=== PATIENT | female | born 1990 | race Caucasian/White ===

== ENCOUNTER 2016-06-07 11:41 | Emergency (ER) | payer BC ==
[~2016-06-07] VITALS: Ht 167.6 cm; Wt 93.0 kg
[~2016-06-07 11:41] MED LIST: BCPILLS PO; MELA1TAB3 PO
[2016-06-07 11:48] VITALS: TEMP 37.1; Ht 167.6 cm; Wt 93.0 kg
[2016-06-07] MEDS ORDERED: CETI10TA84 PO (12:24)
[2016-06-07] MEDS ORDERED: SERT50TA PO (12:24)
[2016-06-07] MEDS ORDERED: SODIUM CHLORIDE 0.9% 1000ML 1,000 ML IV STA (12:29)
[2016-06-07] MEDS ORDERED: OPTIRAY 320 IV PRN (12:45)
[2016-06-07 12:53] LABS: BASO % 0.1 %; BASO ABS # 0.01 K/uL (0-0.2); COMPLETE YES; EOS % 2.1 %; HEMATOCRIT 42.8 % (37-47); IG% 0.2 %; LYMPH % 24.9 %; LYMPH ABS # 2.15 K/uL (1.2-3.4); MEAN CORPUSCULAR HEMOGLOBIN 27.1 pg (25-34); MEAN CORPUSCULAR HGB CONC 34.8 g/dl (32-36); MONO % 6.9 %; NEUT % 65.8 %; PLATELET COUNT 301 K/uL (130-400); RED BLOOD COUNT 5.49 M/uL (4.2-5.4); WHITE BLOOD COUNT 8.65 K/uL (4.8-10.8)
[2016-06-07 13:06] LABS: URINE APPEARANCE CLEAR (CLEAR); URINE BILIRUBIN NEG (NEG); URINE COLOR YELLOW; URINE EPITHELIAL CELL AUTO >30 /lpf (0-5); URINE NITRITE NEG (NEG); URINE PH 6.5 (4.5-7.5); URINE SPECIFIC GRAVITY 1.011 (1.000-1.030); UROBILINOGEN NEG (NEG)
[2016-06-07 13:11] LABS: MANUAL MICROSCOPIC REQUIRED? NO; REVIEW REQ? NO
[2016-06-07 13:12] LABS: ALT/SGPT 24 U/L (12-78); BLOOD UREA NITROGEN 7 mg/dl (7-18); BUN/CREATININE RATIO 8.9 (10-20); CALCIUM 9.1 mg/dl (8.5-10.1); CARBON DIOXIDE 23 mmol/L (21-32); CHLORIDE 109 mmol/L (98-107); CREATININE 0.83 mg/dl (0.60-1.20); GLUCOSE 86 mg/dl (70-99); POTASSIUM 3.7 mmol/L (3.5-5.1); SODIUM 140 mmol/L (136-145)
[2016-06-07 13:15] LABS: ALKALINE PHOSPHATASE 136 U/L (45-117); AST/SGOT 18 U/L (15-37)
[2016-06-07 13:20] LABS: PREG INTERNAL NEGATIVE QC NEG CLEAR BACKGROUND; PREG INTERNAL POSITIVE QC POS CONTROL LINE
[2016-06-07] MEDS ORDERED: METRONIDAZOLE 250 MG TAB PO STA (14:36)
--- NOTE | 2016-06-07 15:32 | DIAGNOSTIC IMAGING REPORT ---
ABDOMEN AND PELVIS CT WITH IV AND ORAL CONTRAST CT DOSE: 746.05 mGy.cm HISTORY: Pain RLA pain eval for roxanna TECHNIQUE: Multiaxial CT images of the abdomen and pelvis were performed following the use of intravenous and oral contrast. COMPARISON STUDY: None. FINDINGS: Lung bases are considered clear. There is been pancreas are unremarkable. Prior cholecystectomy. Kidneys negative for hydronephrosis. Extrarenal pelves are noted bilaterally. Upper abdominal bowel pattern is nonobstructive. There is moderate wall edema of the cecum and proximal a sending colon. There is trace amount. Cecal infiltrative change. The appendix is normal and air-filled. The appearance suggests possibility of cecal diverticulitis. Remainder of the bowel pattern is considered nonobstructive throughout. Is midline. There is trace amount of free fluid within the pelvic cul-de-sac. Bladder is midline. IMPRESSION: 1. Wall edema of the cecum and proximal a sending colon raising the possibility of a component of cecal diverticulitis.. 2. Normal appendix. 3. No evidence for abscess collection or obstruction. Electronically signed by: Michael Manning M.D. 06/07/2016 3:29 PM Dictated Date/Time: 06/07/2016 3:26 PM
[2016-06-07 15:57] VITALS: BP 125/65; PULSE 70; O2SAT 99
[2016-06-07] MEDS ORDERED: METR-163 PO (15:57)
[2016-06-07] MEDS ORDERED: FLUC150T PO (15:57)
--- NOTE | 2016-06-07 18:09 | EMERGENCY ROOM VISIT NOTE ---
History Report prepared by Lewis: Javier Mae Under the Supervision of: Dr. Irwin Leggett M.D. First contact with patient: 12:05 Chief Complaint: DIARRHEA Stated Complaint: DIARRHEA, RIGHT LOWER ABDOMINAL PAIN History of Present Illness The patient is a 25 year old female who presents to the Emergency Room with complaints of episodes of diarrhea that started a week ago. She says that she has had 3 to 4 episodes per day. She describes the diarrhea as "oily", but without any blood. Last night, the patient notes that she started getting abdominal pain that starts around her belly button, and goes to her right lower quadrant. She describes the pain as dull and achy. The patient had a recent sinus infection, and was treated with Augmentin. She ended that treatment a week ago, but then ended up getting a yeast infection from the antibiotic. She has been treating the yeast infection with [id number] Monistat. She denies any fevers, vomiting, urinary symptoms, or new abnormal vaginal discharge. The patient has no history of a C difficile infection. She does state that her mother recently had C. difficile infection but she does not live with her. Source of History: patient Onset: A week ago Position: other (global - diarrhea) Symptom Intensity: 3 to 4 episodes per day Quality: other (diarrhea) Timing: other (episodes) Associated Symptoms: + abdominal pain, No fevers, No hematochezia, No urinary symptoms, No vomiting Note: Associated symptoms: Denies any new abnormal vaginal discharge. Review of Systems See HPI for pertinent positives & negatives. A total of 10 systems reviewed and were otherwise negative. Past Medical & Surgical Medical Problems: (1) Asthma (2) Bronchitis Surgical Problems: (1) History of cholecystectomy Family History Diabetes mellitus FHx: gallbladder disease Hypertension Social History Smoking Status: Never Smoker Alcohol Use: occasionally Marital Status: single Housing Status: lives with significant other Occupation Status: employed Current/Historical Medications Scheduled Control Pills ( Control Pills), 1 TAB PO DAILY Cetirizine (Zyrtec), 10 MG PO DAILY Fluconazole (Diflucan), 150 MG PO DAILY Metronidazole (Flagyl), 500 MG PO TID Sertraline (Zoloft), 50 MG PO QPM Allergies Coded Allergies: No Known Allergies (Unverified , 06/07/16) Physical Exam Vital Signs Date Time Temp Pulse Resp B/P Pulse Ox O2 Delivery O2 Flow Rate FiO2 06/07/16 15:57 70 14 125/65 99 Room Air 06/07/16 13:36 80 12 125/84 99 Room Air 06/07/16 11:48 37.1 98 18 144/85 97 Room Air Physical Exam Constitutional: Vital signs reviewed. Eyes: Pupils are equal round reactive to light. Conjunctiva are noninjected. ENT: Pharynx is clear without erythema or exudate. Mucous membranes are moist. Neck supple without meningeal signs. Respiratory: Clear to auscultation bilaterally. Breath sounds are equal bilaterally. Cardiovascular: Regular rate and rhythm. No rubs or gallops. GI: Soft, nondistended. Right lower quadrant tenderness, no guarding. Bowel sounds are present. Musculoskeletal: No peripheral edema. No lower extremity tenderness. Integumentary: No cyanosis. Neurological: The patient is awake and alert. No focal deficits. Psychiatric: Normal affect. Medical Decision & Procedures ER Provider Diagnostic Interpretation: CT results as stated below per my review and radiologist interpretation. ABDOMEN AND PELVIS CT WITH IV AND ORAL CONTRAST CT DOSE: 746.05 mGy.cm HISTORY: Pain RLA pain eval for roxanna TECHNIQUE: Multiaxial CT images of the abdomen and pelvis were performed following the use of intravenous and oral contrast. COMPARISON STUDY: None. FINDINGS: Lung bases are considered clear. There is been pancreas are unremarkable. Prior cholecystectomy. Kidneys negative for hydronephrosis. Extrarenal pelves are noted bilaterally. Upper abdominal bowel pattern is nonobstructive. There is moderate wall edema of the cecum and proximal a sending colon. There is trace amount. Cecal infiltrative change. The appendix is normal and air-filled. The appearance suggests possibility of cecal diverticulitis. Remainder of the bowel pattern is considered nonobstructive throughout. Is midline. There is trace amount of free fluid within the pelvic cul-de-sac. Bladder is midline. IMPRESSION: 1. Wall edema of the cecum and proximal a sending colon raising the possibility of a component of cecal diverticulitis.. 2. Normal appendix. 3. No evidence for abscess collection or obstruction. Electronically signed by: Michael Manning M.D. 06/07/2016 3:29 PM Dictated Date/Time: 06/07/2016 3:26 PM Laboratory Results 06/07/16 12:40 Red Blood Count 5.49, Mean Corpuscular Volume 78.0, Mean Corpuscular Hemoglobin 27.1, Mean Corpuscular Hemoglobin Concent 34.8, Mean Platelet Volume 9.0, Neutrophils (%) (Auto) 65.8, Lymphocytes (%) (Auto) 24.9, Monocytes (%) (Auto) 6.9, Eosinophils (%) (Auto) 2.1, Basophils (%) (Auto) 0.1, Neutrophils # (Auto) 5.69, Lymphocytes # (Auto) 2.15, Monocytes # (Auto) 0.60, Eosinophils # (Auto) 0.18, Basophils # (Auto) 0.01 06/07/16 12:40 Test 06/07/16 12:40 White Blood Count 8.65 K/uL (4.8-10.8) Red Blood Count 5.49 M/uL (4.2-5.4) Hemoglobin 14.9 g/dL (12.0-16.0) Hematocrit 42.8 % (37-47) Mean Corpuscular Volume 78.0 fL (80-100) Mean Corpuscular Hemoglobin 27.1 pg (25-34) Mean Corpuscular Hemoglobin Concent 34.8 g/dl (32-36) Platelet Count 301 K/uL (130-400) Mean Platelet Volume 9.0 fL (7.4-10.4) Neutrophils (%) (Auto) 65.8 % Lymphocytes (%) (Auto) 24.9 % Monocytes (%) (Auto) 6.9 % Eosinophils (%) (Auto) 2.1 % Basophils (%) (Auto) 0.1 % Neutrophils # (Auto) 5.69 K/uL (1.4-6.5) Lymphocytes # (Auto) 2.15 K/uL (1.2-3.4) Monocytes # (Auto) 0.60 K/uL (0.11-0.59) Eosinophils # (Auto) 0.18 K/uL (0-0.5) Basophils # (Auto) 0.01 K/uL (0-0.2) RDW Standard Deviation 36.4 fL (36.4-46.3) RDW Coefficient of Variation 12.9 % (11.5-14.5) Immature Granulocyte % (Auto) 0.2 % Immature Granulocyte # (Auto) 0.02 K/uL (0.00-0.02) Urine Color YELLOW Urine Appearance CLEAR (CLEAR) Urine pH 6.5 (4.5-7.5) Urine Specific [place] 1.011 (1.000-1.030) Urine Protein NEG (NEG) Urine Glucose (UA) NEG (NEG) Urine Ketones NEG (NEG) Urine Occult Blood 2+ (NEG) Urine Nitrite NEG (NEG) Urine Bilirubin NEG (NEG) Urine Urobilinogen NEG (NEG) Urine Leukocyte Esterase MODERATE (NEG) Urine WBC (Auto) 5-10 /hpf (0-5) Urine RBC (Auto) 0-4 /hpf (0-4) Urine Hyaline Casts (Auto) 1-5 /lpf (0-5) Urine Epithelial Cells (Auto) >30 /lpf (0-5) Urine Bacteria (Auto) 1+ (NEG) Urine Test NEG (NEG) Anion Gap 8.0 mmol/L (3-11) Est Creatinine Clear Calc Drug Dose 119.0 ml/min Estimated GFR () 113.6 Estimated GFR (Non- 98.0 BUN/Creatinine Ratio 8.9 (10-20) Calcium Level 9.1 mg/dl (8.5-10.1) Total Bilirubin 0.3 mg/dl (0.2-1) Direct Bilirubin < 0.1 mg/dl (0-0.2) Aspartate Amino Transf (AST/SGOT) 18 U/L (15-37) Alanine Aminotransferase (ALT/SGPT) 24 U/L (12-78) Alkaline Phosphatase 136 U/L (45-117) Total Protein 7.6 gm/dl (6.4-8.2) Albumin 3.5 gm/dl (3.4-5.0) Lipase 112 U/L (73-393) Laboratory results as reviewed by me. Medications Administered Medications (Trade) Dose Ordered Sig/Ana M Route Start Time Stop Time Status Last Admin Dose Admin Sodium Chloride (Nss 1000ml) 1,000 ml @ 999 mls/hr Q1H1M STAT IV 06/07/16 12:29 06/07/16 13:29 DC 06/07/16 13:00 999 MLS/HR Metronidazole (Flagyl Tab) 500 mg NOW STAT PO 06/07/16 14:36 06/07/16 14:37 DC 06/07/16 14:44 500 MG ED Course 1206: The patient was evaluated in room C5. A complete history and physical exam was performed. 1229: Ordered NSS 1000 ml @ 999 mls/hr IV. 1432: I reevaluated the patient and discussed the test results with her. I stated that she probably does not need a CT scan because it is unlikely for her to have appendicitis and C. difficile at the same time, but she says that she wants to have the CT scan anyway even after discussing the radiation with her. 1436: Ordered Flagyl Tab 500 mg PO. 1550: I reevaluated the patient and she requested that we give her a prescription of Diflucan because she always gets yeast infections, which she will only take if she develops symptoms of infection. I also told her precautions regarding Flagyl. The patient verbally expressed understanding and agreement of the treatment plan. The patient will be discharged. Medical Decision This is a 25-year-old female who presents with diarrhea and right lower quadrant abdominal pain. Differential diagnosis includes C. difficile infection , colitis, inflammatory bowel disease, appendicitis, ileitis. I did perform a limited focused review of portions of the patient's old chart on the electronic medical record. The patient has had no recent pertinent visits to this hospital. I did evaluate the patient as noted above. The patient is presenting with diarrhea. She was recently on Augmentin and so I was concerned about a C. difficile infection. She developed recurrent umbilical pain which trouble to the right lower quadrant and so appendicitis was a consideration as well. She is tender in the right lower quadrant. IV access was established. I did order and personally review the patient's urinalysis as described above. The urinalysis does appear contaminated likely from the diarrhea. Urine test was negative. I did order and review the patient's blood work as noted in the electronic medical record. Her white blood cell count is not elevated. I did order a C. difficile antigen test which came back positive. I originally ordered a CT scan to rule out appendicitis. Given the positive C. difficile test I did feel that the CT was not necessary indicated. I did discuss this with the patient and her mother and discussed the risks of radiation exposure from the CT. After discussion they didn't wish to proceed with the CAT scan. I did review the images myself as well as the radiology report as described above. The appendix was normal. The patient does have signs of a colitis in the right colon or she is tender. I did feel cecal diverticulitis is less likely that I did discuss the results with her and recommended follow up with gastroenterology after her symptoms had resolved. The patient was treated with Flagyl here. She was discharged with a prescription for Flagyl for 14 days and given a prescription for Diflucan as well for her request. Impression Primary Impression: C. difficile colitis Scribe Attestation The scribe's documentation has been prepared under my direct and personally reviewed by me in its entirety. I confirm that the note above accurately reflects all work, treatment, procedures, and medical decision making performed by me. Departure Information Dispostion Home / Self-Care Prescriptions Fluconazole (DIFLUCAN) 150 Mg Tab 150 MG PO DAILY, #1 TAB Prov: Irwin Leggett M.D. 06/07/16 Metronidazole (Flagyl) 500 Mg Tab 500 MG PO TID for 14 Days, #42 TAB Prov: Irwin Leggett M.D. 06/07/16 Referrals Katharine Matthews (PCP) Forms HOME CARE DOCUMENTATION FORM, IMPORTANT VISIT INFORMATION, WORK / SCHOOL INSTRUCTIONS Patient Instructions Clostridium Difficile Infec, My [facility] Additional Instructions You have been examined and treated today on an emergency basis only. This is not a substitute for, or an effort to provide, complete comprehensive medical care. It is impossible to recognize and treat all injuries or illnesses in a single emergency department visit. It is therefore important that you follow up closely with your physician. Call as soon as possible for an appointment. Return for worsening symptoms or if you develop fever, vomiting, rectal bleeding or any other concerning symptoms.
== END 2016-06-07 16:13 | disposition home or self-care (01) ==
LOC: C.EDB 11:43 → C.EDC 16:13
DX: A04.7 Enterocolitis due to Clostridium difficile (principal); J45.909 Unspecified asthma, uncomplicated; Z83.3 Family history of diabetes mellitus; Z82.49 Family history of ischemic heart disease and other diseases of the circulatory system

== ENCOUNTER 2017-06-29 13:14 | Emergency (ER) | payer BC ==
[~2017-06-29] VITALS: Ht 167.6 cm; Wt 107.7 kg
[~2017-06-29 13:14] MED LIST changes: +CETI10TA84 PO; -MELA1TAB3 PO; +SERT50TA PO
[2017-06-29 13:18] VITALS: TEMP 36.9; Ht 167.6 cm; Wt 107.7 kg
[2017-06-29] MEDS ORDERED: ONDANSETRON INJ 2 MG/ML 2 ML VIAL IV STA (13:32)
[2017-06-29] MEDS ORDERED: SODIUM CHLORIDE 0.9% 1000ML 1,000 ML IV STA (13:32)
[2017-06-29] MEDS ORDERED: MISCCAP80 (13:51)
[2017-06-29] MEDS ORDERED: LEVO5TAB2 PO (13:51)
[2017-06-29] MEDS ORDERED: SERT-234 PO (13:51)
[2017-06-29] MEDS ORDERED: CHOL400C10 (13:51)
[2017-06-29] MEDS ORDERED: ALPR-411 PO (13:51)
[2017-06-29 14:29] LABS: BASO % 0.3 %; BASO ABS # 0.02 K/uL (0-0.2); EOS % 2.9 %; EOS ABS # 0.21 K/uL (0-0.5); HEMATOCRIT 43.1 % (37-47); IG# 0.03 K/uL (0.00-0.02); LYMPH % 26.6 %; MEAN CELL VOLUME 78.4 fL (80-100); MEAN CORPUSCULAR HEMOGLOBIN 27.3 pg (25-34); MEAN CORPUSCULAR HGB CONC 34.8 g/dl (32-36); MEAN PLATELET VOLUME 8.5 fL (7.4-10.4); MONO % 10.6 %; MONO ABS # 0.76 K/uL (0.11-0.59); NEUT % 59.2 %; NEUT ABS # 4.23 K/uL (1.4-6.5); PLATELET COUNT 232 K/uL (130-400); RED CELL DISTRIBUTION WIDTH CV 13.2 % (11.5-14.5); RED CELL DISTRIBUTION WIDTH SD 37.7 fL (36.4-46.3); WHITE BLOOD COUNT 7.15 K/uL (4.8-10.8)
[2017-06-29 14:52] LABS: ALBUMIN 3.5 gm/dl (3.4-5.0); CALCIUM 8.5 mg/dl (8.5-10.1); CREATININE 0.83 mg/dl (0.60-1.20); POTASSIUM 3.6 mmol/L (3.5-5.1)
[2017-06-29 14:55] LABS: TOTAL PROTEIN 7.9 gm/dl (6.4-8.2)
--- NOTE | 2017-06-29 17:42 | DIAGNOSTIC IMAGING REPORT ---
ABDOMEN LIMITED (US) HISTORY: 26 years-old Female ELEVATED LFTs acutely elevated LFTs COMPARISON: CT abdomen and pelvis 06/07/2016 TECHNIQUE: Multiple real-time sonographic images of the abdominal right upper quadrant were obtained assessing grayscale appearance and color flow FINDINGS: Pancreas is mostly obscured by bowel gas. Liver appears unremarkable without intrahepatic biliary ductal dilation or focal mass lesion. Prior cholecystectomy. Common bile duct is normal, 3 mm. Imaged right kidney is unremarkable without hydronephrosis. IMPRESSION: 1. Prior cholecystectomy without acute process of the abdominal right upper quadrant. 2. Pancreas is obscured by bowel gas. The above report was generated using voice recognition software. It may contain grammatical, syntax or spelling errors. Electronically signed by: Chapito Pang M.D. 06/29/2017 5:40 PM Dictated Date/Time: 06/29/2017 5:39 PM
--- NOTE | 2017-06-29 18:17 | EMERGENCY ROOM VISIT NOTE ---
History First contact with patient: 13:28 Chief Complaint: DIARRHEA Stated Complaint: DIARRHEA (15-20 TIMES SINCE FRIDAY), FEVER History of Present Illness The patient is a 26 year old female who presents to the Emergency Room with complaints of persistent diarrhea since Friday morning. The patient denies any nausea, vomiting or abdominal pain. Patient reports that she had a C. difficile infection within the past year. This was the result of Augmentin antibiotics for a sinus infection. The patient is currently on a probiotic. 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 The patient reports that she did have a temperature 100.1F on Friday evening. The patient is wondering if she may have eaten a bad hoagie that she purchased Friday evening. The patient is noticing a small amount of blood in the toilet, but also reports that she is currently menstruating. The patient reports that she has had a CT scan in the past that has showed diverticulosis. She denies any urinary symptoms. Review of Systems HEENT: Denies dizziness, visual problems, hearing loss, tinnitus. Denies difficulty swallowing or oral lesions. PULMONARY: Denies cough, shortness of breath, sputum production or hemoptysis. CARDIOVASCULAR: Denies chest pain, palpitations, dyspnea on exertion, orthopnea or peripheral edema. GASTROINTESTINAL: See HPI. GENITOURINARY: Denies dysuria, frequency, urgency or nocturia. NEUROLOGIC: Denies history of epilepsy, CVA, TIA or chronic headaches. MUSCULOSKELETAL: Denies history of joint tenderness/swelling. SKIN: Denies rashes or lesions. PSYCHIATRIC: Denies history of depression or mental illness. ENDOCRINE: Denies history of diabetes or thyroid disorders. Past Medical/Surgical History Medical Problems: (1) Asthma (2) Bronchitis (3) Enterocolitis Due To Clostridium Difficile Surgical Problems: (1) History of cholecystectomy (2) History of wisdom tooth extraction Family History Diabetes mellitus FH: kidney disease FHx: gallbladder disease Hypertension Social History Smoking Status: Never Smoker Alcohol Use: occasionally Marital Status: single Housing Status: lives with significant other Occupation Status: employed Current/Historical Medications Scheduled Levocetirizine Dihydrochloride (Xyzal), 1 TAB PO prn Sertraline (Zoloft), 100 MG PO DAILY Miscellaneous Medications Alprazolam (Xanax), 0.5 MG PO Cholecalciferol (Vitamin D 400) Probiotic Product (Probiotic) Physical Exam Vital Signs Date Time Temp Pulse Resp B/P (MAP) Pulse Ox O2 Delivery O2 Flow Rate FiO2 06/29/17 17:51 76 15 112/66 99 Room Air 06/29/17 16:43 75 16 113/74 99 Room Air 06/29/17 14:59 77 16 131/85 98 Room Air 06/29/17 13:18 36.9 101 18 143/91 98 Room Air Physical Exam CONSTITUTIONAL: Healthy and well nourished. Alert and oriented X 3 with positive affect. Patient does not appear in any acute distress. HEENT: Normocephalic, atraumatic. Pupils equal, round and reactive. No scleral icterus or conjunctival injection/pallor. OROPHARYNX: Mucous membranes are moist. No posterior pharyngeal erythema. NECK: Full active range of motion without discomfort. RESPIRATORY: Clear to auscultation bilaterally with no wheezing, crackles, rhonchi or stridor. CARDIOVASCULAR: Regular rate and rhythm with no murmurs, rubs or gallops. GASTROINTESTINAL: Bowel sounds present in all quadrants. Patient has minimal lower abdominal tenderness to palpation. No rigidity, guarding or rebound. Negative CVA tenderness. Negative McBurney's point tenderness. MUSCULOSKELETAL: Full range of motion of all joints without discomfort. INTEGUMENTARY: No rash or other significant dermatologic conditions noted. NEUROLOGIC: No focal neurologic deficits noted. Medical Decision & Procedures ER Provider Diagnostic Interpretation: Ultrasound of the right upper quadrant does not show any acute findings. Radiologist report is as follows: ABDOMEN LIMITED (US) HISTORY: 26 years-old Female ELEVATED LFTs acutely elevated LFTs COMPARISON: CT abdomen and pelvis 06/07/2016 TECHNIQUE: Multiple real-time sonographic images of the abdominal right upper quadrant were obtained assessing grayscale appearance and color flow FINDINGS: Pancreas is mostly obscured by bowel gas. Liver appears unremarkable without intrahepatic biliary ductal dilation or focal mass lesion. Prior cholecystectomy. Common bile duct is normal, 3 mm. Imaged right kidney is unremarkable without hydronephrosis. IMPRESSION: 1. Prior cholecystectomy without acute process of the abdominal right upper quadrant. 2. Pancreas is obscured by bowel gas. Laboratory Results 06/29/17 14:15 Red Blood Count 5.50, Mean Corpuscular Volume 78.4, Mean Corpuscular Hemoglobin 27.3, Mean Corpuscular Hemoglobin Concent 34.8, Mean Platelet Volume 8.5, Neutrophils (%) (Auto) 59.2, Lymphocytes (%) (Auto) 26.6, Monocytes (%) (Auto) 10.6, Eosinophils (%) (Auto) 2.9, Basophils (%) (Auto) 0.3, Neutrophils # (Auto ) 4.23, Lymphocytes # (Auto) 1.90, Monocytes # (Auto) 0.76, Eosinophils # (Auto ) 0.21, Basophils # (Auto) 0.02 06/29/17 14:15 Test 06/29/17 14:00 06/29/17 14:15 Urine Test NEG (NEG) White Blood Count 7.15 K/uL (4.8-10.8) Red Blood Count 5.50 M/uL (4.2-5.4) Hemoglobin 15.0 g/dL (12.0-16.0) Hematocrit 43.1 % (37-47) Mean Corpuscular Volume 78.4 fL (80-100) Mean Corpuscular Hemoglobin 27.3 pg (25-34) Mean Corpuscular Hemoglobin Concent 34.8 g/dl (32-36) Platelet Count 232 K/uL (130-400) Mean Platelet Volume 8.5 fL (7.4-10.4) Neutrophils (%) (Auto) 59.2 % Lymphocytes (%) (Auto) 26.6 % Monocytes (%) (Auto) 10.6 % Eosinophils (%) (Auto) 2.9 % Basophils (%) (Auto) 0.3 % Neutrophils # (Auto) 4.23 K/uL (1.4-6.5) Lymphocytes # (Auto) 1.90 K/uL (1.2-3.4) Monocytes # (Auto) 0.76 K/uL (0.11-0.59) Eosinophils # (Auto) 0.21 K/uL (0-0.5) Basophils # (Auto) 0.02 K/uL (0-0.2) RDW Standard Deviation 37.7 fL (36.4-46.3) RDW Coefficient of Variation 13.2 % (11.5-14.5) Immature Granulocyte % (Auto) 0.4 % Immature Granulocyte # (Auto) 0.03 K/uL (0.00-0.02) Anion Gap 9.0 mmol/L (3-11) Est Creatinine Clear Calc Drug Dose 127.5 ml/min Estimated GFR () 112.8 Estimated GFR (Non- 97.3 BUN/Creatinine Ratio 10.6 (10-20) Calcium Level 8.5 mg/dl (8.5-10.1) Total Bilirubin 0.5 mg/dl (0.2-1) Direct Bilirubin 0.1 mg/dl (0-0.2) Aspartate Amino Transf (AST/SGOT) 135 U/L (15-37) Alanine Aminotransferase (ALT/SGPT) 207 U/L (12-78) Alkaline Phosphatase 193 U/L (45-117) Total Protein 7.9 gm/dl (6.4-8.2) Albumin 3.5 gm/dl (3.4-5.0) Lipase 111 U/L (73-393) Date/Time Source Procedure Growth Status 06/29/17 15:00 Stool C.difficile Toxin B Gene (PCR) - Final No C. difficile toxin B gene detected Complete The above labs were reviewed. CBC, partial renal profile and lipase is normal. LFTs are elevated. Stool Hemoccult was negative. No C. difficile is detected. Fecal leukocytes are not present. Stool cultures are pending. Urine dip was normal, and urine was negative. Medications Administered Medications (Trade) Dose Ordered Sig/Ana M Route Start Time Stop Time Status Last Admin Dose Admin Sodium Chloride 1,000 ml @ 999 mls/hr Q1H1M STAT IV 06/29/17 13:32 06/29/17 14:32 DC 06/29/17 14:55 999 MLS/HR ED Course Patient history and physical exam were performed. Nurse's notes were reviewed. Vital signs were reviewed, showing mild tachycardia. Blood pressure is also mildly elevated at 143/91. The patient is afebrile. IV access was established , and labs were drawn. The patient was hydrated with a liter normal saline. Urine dip was normal, and urine is negative. Review of labs shows elevated LFTs and alkaline phosphatase. Lipase, CBC and remaining electrolytes are normal. Stool studies were ordered with negative stool Hemoccult, C. difficile and fecal leukocytes. Stool cultures are pending. Because of elevated LFTs, I did elect to get a right upper quadrant ultrasound which was also unremarkable. The case was further discussed with Dr. Leggett, ED attending physician, who helped to formulate workup while in the emergency department. The patient was encouraged to follow-up with her PCP for further reevaluation and management. The patient was encouraged to remain well-hydrated. Return to the emergency department for any developing abdominal pain, fever, vomiting, bloody stool or other concerns. The patient was happy with plan of care, voiced understanding of all discharge instructions, and denied any pain or nausea at the time of discharge. Medical Decision Patient presents with complaint of diarrhea for several days. She was concerned that she might potentially have food poisoning. Her stool studies today are not indicative of this. She does have elevated LFTs of unknown etiology. The patient is status post cholecystectomy. Ultrasound does not show a fatty liver, obvious pancreatitis, common bile duct dilatation or other acute findings. Urine dip is not suggestive of infection, and urine is negative. Viral etiology was also entertained. At this point, I do not feel that antibiotic treatment is warranted. We will await stool culture results, and allow the family doctor to workup her elevated LFTs. Medication Reconcilliation Current Medication List: was personally reviewed by me Blood Pressure Screening Patient's blood pressure: Normal blood pressure Impression Primary Impression: Diarrhea Additional Impression: Elevated LFTs Departure Information Referrals Katharine Matthews (PCP) Patient Instructions My [facility] Problem Qualifiers Primary Impression: Diarrhea Diarrhea type: unspecified type Qualified Codes: R19.7 - Diarrhea, unspecified
[2017-06-29 18:55] VITALS: BP 120/81; PULSE 81; O2SAT 98
== END 2017-06-29 18:52 | disposition home or self-care (01) ==
LOC: C.EDB 13:15
DX: R19.7 Diarrhea, unspecified (principal); R79.89 Other specified abnormal findings of blood chemistry; J45.909 Unspecified asthma, uncomplicated; Z90.49 Acquired absence of other specified parts of digestive tract; Z83.3 Family history of diabetes mellitus; Z84.1 Family history of disorders of kidney and ureter; Z82.49 Family history of ischemic heart disease and other diseases of the circulatory system; Z83.79 Family history of other diseases of the digestive system; Z79.899 Other long term (current) drug therapy